=== PATIENT | female | born 1990 | race Caucasian/White ===

== ENCOUNTER 2020-12-01 21:23 | Emergency (ER) | payer OTHER, MEDICAID ==
[~2020-12-01] VITALS: Ht 160 cm; Wt 84.8 kg
[~2020-12-01 21:23] MED LIST: DIPHENHYDRAMINE25 M4; LANOLIN ANHYDROU1 GM TP; MACROBID 100 M100 M1 PO; PRENATAL; TL-FOL 500 CAP1 EACH PO; ZOFRAN ODT4 MG PO; ZOFRAN4 MG
[2020-12-01 22:04] LABS: URINE BLOOD NEGATIVE (Negative); URINE CLARITY CLEAR; URINE COLOR YELLOW; URINE GLUCOSE-RANDOM TRACE (Negative); URINE LEUKOCYTES-REFLEX NEGATIVE (Negative); URINE NITRITE-REFLEX NEGATIVE (Negative); URINE PROTEIN TRACE (Negative); URINE SPECIFIC GRAVITY >= 1.030 (1.005-1.030); URINE UROBILINOGEN >= 8.0 E.U./dl (0.2-1.0)
[2020-12-01 22:07] LABS: ICTOTEST (BILI CONFIRMATORY) Negative (Negative); URINE BILIRUBIN 2+ (Negative); URINE KETONES 3+ (Negative)
[2020-12-01 22:15] LABS: HEMATOCRIT 39.8 % (37.0-47.0); HEMOGLOBIN 13.5 gm/dL (12.0-15.0); MCH 27.4 pg (26.0-34.0); MCV 80.8 fL (80.0-100.0); MPV 7.8 fl. (7.2-11.1); RBC 4.93 mil/uL (4.20-5.00); RDW-CV 12.7 % (10.5-14.5); WBC 3.9 thou/uL (4.0-11.0)
[2020-12-01 22:24] LABS: CALCIUM 8.2 mg/dL (8.5-10.1); CREATININE 0.8 mg/dL (0.6-1.3); POTASSIUM 3.6 mmol/L (3.5-5.1)
[2020-12-01 22:28] LABS: ALBUMIN 4.1 g/dL (3.4-5.0); TOTAL BILIRUBIN 0.4 mg/dL (<0.1-1.0)
[2020-12-02] MEDS ORDERED: PROMS25 WY RECTAL (00:59)
[2020-12-02] MEDS ORDERED: ZOFRAN ODT4 MG PO (00:59)
[2020-12-02 01:23] VITALS: BP 120/72
== END 2020-12-02 01:23 | disposition home or self-care (01) ==
LOC: M.ERS 21:23
PROVIDERS: Personal Emergency Response Attendant
DX: E86.0 Dehydration (principal); Z20.822 Contact with and (suspected) exposure to COVID-19; R11.2 Nausea with vomiting, unspecified; Z88.0 Allergy status to penicillin; Z88.8 Allergy status to other drugs, medicaments and biological substances

== ENCOUNTER 2020-12-07 20:36 | Emergency (ER) | payer OTHER, MEDICAID ==
[~2020-12-07] VITALS: Ht 157.5 cm; Wt 84.8 kg
[~2020-12-07 20:36] MED LIST changes: +PROMS25 WY RECTAL
[2020-12-07 21:03] LABS: URINE BLOOD NEGATIVE (Negative); URINE CLARITY CLEAR; URINE COLOR YELLOW; URINE GLUCOSE-RANDOM NEGATIVE (Negative); URINE KETONES NEGATIVE (Negative); URINE LEUKOCYTES-REFLEX 1+ (Negative); URINE NITRITE-REFLEX NEGATIVE (Negative); URINE PROTEIN NEGATIVE (Negative); URINE SPECIFIC GRAVITY >= 1.030 (1.005-1.030)
[2020-12-07 21:06] LABS: ICTOTEST (BILI CONFIRMATORY) Negative (Negative); URINE BILIRUBIN 1+ (Negative)
[2020-12-07 21:09] LABS: ABSOLUTE EOSINOPHILS 0.2 thou/uL (0.0-0.7); ABSOLUTE LYMPHOCYTES 3.1 thou/uL (0.8-5.3); ABSOLUTE MONOCYTES 0.6 thou/uL (0.0-1.2); BASOPHILS 0.6 %; EOSINOPHILS 2.9 %; HEMATOCRIT 37.3 % (37.0-47.0); HEMOGLOBIN 12.7 gm/dL (12.0-15.0); LYMPHOCYTES 45.4 %; MCH 27.4 pg (26.0-34.0); MCHC 34.1 g/dL (28.0-37.0); MCV 80.3 fL (80.0-100.0); MONOCYTES 8.1 %; MPV 7.8 fl. (7.2-11.1); NUCLEATED RBCS 0 /100WBC; PLATELET COUNT* 262 thou/uL (150-400); RBC 4.64 mil/uL (4.20-5.00); RDW-CV 12.7 % (10.5-14.5); WBC 6.9 thou/uL (4.0-11.0)
[2020-12-07 21:13] LABS: MUCUS 0-3 Light strn/LPF (None Seen); SQUAMOUS >10 Many /LPF (0-3)
[2020-12-07 21:14] LABS: CASTS None Seen /LPF (None Seen); URINE WBC-REFLEX 6-15 Few /HPF (0-5)
[2020-12-07 21:15] LABS: CRYSTALS None Seen /LPF (None Seen); URINE RBC None Seen /HPF (0-2)
[2020-12-07 21:24] LABS: ALBUMIN 3.7 g/dL (3.4-5.0); CALCIUM 8.7 mg/dL (8.5-10.1); CREATININE 0.6 mg/dL (0.6-1.3); POTASSIUM 3.5 mmol/L (3.5-5.1); TOTAL BILIRUBIN 0.4 mg/dL (<0.1-1.0); TOTAL PROTEIN 7.6 g/dL (6.4-8.2)
[2020-12-07] MEDS ORDERED: MACROBID 100 M100 M2 PO (22:12)
[2020-12-07] MEDS ORDERED: ZOFRAN ODT4 MG PO (22:13)
[2020-12-07] MEDS ORDERED: CEFDINIR300 MG PO (23:19)
[2020-12-07 23:40] LABS: INFLUENZA A ANTIGEN Negative (Negative); INFLUENZA B ANTIGEN Negative (Negative)
[2020-12-07 23:47] VITALS: BP 120/75
--- NOTE | 2020-12-09 14:16 | EKG ---
[place] [address] ELECTROCARDIOGRAM REPORT Name: VIRGINIA TOVAR Room: [facility]#: [id number] Admission: 12/07/20 Attend Phys: Discharge: 12/07/20 Date of : 88 Date of Service: 12/07/202113 Report #: [id number] THIS REPORT FOR: //name// [facility] ED Test Date: 2020-12-07 Test Time: 21:14:12 Pat Name: VIRGINIA TOVAR Department: Room: Gender: F Press Assistant: [place] : 1990 Requested By: Alyson Sandhu Order Number: [id number] MD: Benja Rodriguez Measurements Intervals [place] Rate: 62 P: 1 TX: 169 QRS: 40 QRSD: 97 T: 29 QT: 433 QTc: 440 Interpretive Statements Sinus rhythm RSR' in V1 or V2, probably normal variant Nonspecific T abnormalities, lateral leads Baseline wander in lead(s) II,III,aVF No previous ECG available for comparison Electronically Signed On 12-09-2020 14:16:28 CDT by Benja Rodriguez [email or web address] <ELECTRONICALLY SIGNED> By: Benja Rodriguez MD, [facility] 12/09/20 1416 13 13 Benja Rodriguez MD, [facility] /EPI
== END 2020-12-07 23:49 | disposition home or self-care (01) ==
LOC: M.ERS 20:36
PROVIDERS: Emergency Medicine; Nurse Practitioner Family
DX: N39.0 Urinary tract infection, site not specified (principal); Z20.822 Contact with and (suspected) exposure to COVID-19; R11.2 Nausea with vomiting, unspecified; R10.84 Generalized abdominal pain; R50.9 Fever, unspecified; Z88.8 Allergy status to other drugs, medicaments and biological substances; Z88.0 Allergy status to penicillin